=== PATIENT | female | born 1995 | race Caucasian/White ===

== ENCOUNTER 2016-10-21 14:20 | Emergency (ER) | payer MEDICAID ==
[2016-10-21 15:03] VITALS: BP 137/72
--- NOTE | 2016-10-21 15:54 | EDM.PDOC ---
ED HPI - General Chief Complaint: [employer] Problem Stated Complaint: 5 WEEKS PG SOME PAIN ON LEFT SIDE Time Seen by Provider: 10/21/16 15:48 Source: Reports: Patient, RN notes reviewed History Limitations: Reports: No limitations - History of Present Illness INITIAL COMMENTS - FREE TEXT/NARRATIVE: 21-year-old female presents to the emergency department a complaint of intermittent flank pain on the left side, she states she is newly estimates about 5 weeks she denies any vaginal bleeding any discharge no problems with urination the pain comes and goes a couple of times per day he rates the pain 5/10 she's been going on for the last 2 days - Related Data Allergies/ADRs: Allergies Allergy/AdvReac Type Severity Reaction Status Date / Time latex Allergy Cannot Verified 10/21/16 15:04 Remember Home Meds: Home Meds Vit W-Ca,Fe,FA(<1 mg) [P-D Nicolle Plus with Folic Acid] 1 tab PO DAILY 10/21/16 [History] Past Medical History [employer]ER History: Reports: Psychiatric History: Reports: ADHD, Depression - Past Surgical History HEENT Surgical History: Reports: Oral surgery Social & Family History - Tobacco Use Smoking Status *Q: Never Smoker Years of Tobacco use: 1 - Caffeine Use Caffeine Use: Reports: Soda - Alcohol Use Days Per Week of Alcohol Use: 0 - Recreational Drug Use Recreational Drug Use: No ED ROS GENERAL - Review of Systems Review Of Systems: See Below Constitutional: Reports: no symptoms Respiratory: Reports: no symptoms Cardiovascular: Reports: No symptoms GI/Abdominal: Reports: Abdominal pain. Denies: Nausea, Vomiting : Reports: no symptoms Musculoskeletal: Reports: no symptoms ED EXAM - Physical Exam Exam: See Below Exam Limited By: No limitations General Appearance: alert, WD/WN, no apparent distress Respiratory/Chest: no respiratory distress GI/Abdominal: normal bowel sounds, soft, non tender, no organomegaly, no distention, no abnormal bruit, no mass Course - Vital Signs Last Recorded V/S: Last Vital Signs Temp 96.4 F 10/21/16 15:06 Pulse 94 10/21/16 15:06 Resp 16 10/21/16 15:06 BP 137/72 10/21/16 15:06 Pulse Ox 100 10/21/16 15:06 - Orders/Labs/Meds Orders: Active Orders 24 hr Category Date Time Status OB Transvaginal [US] Stat Exams 10/21/16 16:58 Taken Labs: Laboratory Tests 10/21/16 10/21/16 10/21/16 Range/Units 16:02 16:02 16:02 WBC 10.5 (4.5-11.0) K/uL RBC 4.69 (3.30-5.50) M/uL Hgb 13.8 (12.0-15.0) g/dL Hct 40.1 (36.0-48.0) % MCV 86 (80-98) fL MCH 29 (27-31) pg MCHC 34 (32-36) % Plt Count 332 (150-400) K/uL Neut % (Auto) 72 H (36-66) % Lymph % (Auto) 20 L (24-44) % Stearns % (Auto) 7 H (2-6) % Eos % (Auto) 0 L (2-4) % Baso % (Auto) 1 (0-1) % Sodium 137 L (140-148) mmol/L Potassium 4.1 (3.6-5.2) mmol/L Chloride 103 (100-108) mmol/L Carbon Dioxide 29 (21-32) mmol/L Anion Gap 9.1 (5.0-14.0) mmol/L BUN 12 (7-18) mg/dL Creatinine 0.7 (0.6-1.0) mg/dL Est Cr Clr Drug Dosing 89.78 mL/min Estimated GFR (MDRD) > 60 (>60) Glucose 85 (74-106) mg/dL Calcium 8.6 (8.5-10.1) mg/dL HCG, Quant 6775 H (0-6) mIU/mL Urine Color Urine Appearance Urine pH (4.5-8.0) Ur Specific [place] (1.008-1.030) Urine Protein (NEGATIVE) mg/dL Urine Glucose (UA) (NEGATIVE) mg/dL Urine Ketones (NEGATIVE) mg/dL Urine Occult Blood (NEGATIVE) Urine Nitrite (NEGATIVE) Urine Bilirubin (NEGATIVE) Urine Urobilinogen (NORMAL) mg/dL Ur Leukocyte Esterase (NEGATIVE) Urine RBC (0-5) Urine WBC (0-5) Ur Epithelial Cells Amorphous Sediment Urine Bacteria Urine Mucus 10/21/16 Range/Units 16:10 WBC (4.5-11.0) K/uL RBC (3.30-5.50) M/uL Hgb (12.0-15.0) g/dL Hct (36.0-48.0) % MCV (80-98) fL MCH (27-31) pg MCHC (32-36) % Plt Count (150-400) K/uL Neut % (Auto) (36-66) % Lymph % (Auto) (24-44) % Stearns % (Auto) (2-6) % Eos % (Auto) (2-4) % Baso % (Auto) (0-1) % Sodium (140-148) mmol/L Potassium (3.6-5.2) mmol/L Chloride (100-108) mmol/L Carbon Dioxide (21-32) mmol/L Anion Gap (5.0-14.0) mmol/L BUN (7-18) mg/dL Creatinine (0.6-1.0) mg/dL Est Cr Clr Drug Dosing mL/min Estimated GFR (MDRD) (>60) Glucose (74-106) mg/dL Calcium (8.5-10.1) mg/dL HCG, Quant (0-6) mIU/mL Urine Color Yellow Urine Appearance Clear Urine pH 7.0 (4.5-8.0) Ur Specific [place] 1.015 (1.008-1.030) Urine Protein Negative (NEGATIVE) mg/dL Urine Glucose (UA) Normal (NEGATIVE) mg/dL Urine Ketones Negative (NEGATIVE) mg/dL Urine Occult Blood Negative (NEGATIVE) Urine Nitrite Negative (NEGATIVE) Urine Bilirubin Negative (NEGATIVE) Urine Urobilinogen Normal (NORMAL) mg/dL Ur Leukocyte Esterase Negative (NEGATIVE) Urine RBC 0-5 (0-5) Urine WBC 0-5 (0-5) Ur Epithelial Cells Rare Amorphous Sediment Not seen Urine Bacteria Not seen Urine Mucus Not seen Departure - Departure Time of Disposition: 18:29 Disposition: Home, Self-Care 01 Condition: good Clinical Impression: Left flank pain Forms: ED Department Discharge Additional Instructions: please start your vitamins, use Tylenol as needed for pain control, followup with your OB provider this week for further evaluation, call or return to the ED with worsening of symptoms - My Orders Last 24 Hours: My Active Orders 10/21/16 16:58 OB Transvaginal [US] Stat - Assessment/Plan Last 24 Hours: My Active Orders 10/21/16 16:58 OB Transvaginal [US] Stat Plan: Assessment Acuity = acute Site and laterality = left-sided flank pain complicated patient with new onset estimate 5 weeks Etiology = unclear etiology Manifestations = none Location of injury = home Lab values = CBC, CMP within normal limits beta hCG is 6775 urinalysis unremarkable transvaginal and does demonstrate intrauterine however no cardiac activity was observed Plan she is to followup with her [employer] within the next week for initial OB labs and further evaluation as needed, use Tylenol or pain control Patient was in agreement with the plan all questions were answered, they were instructed to return to the emergency department or call for worsening symptoms. This note was dictated using [employer] voice recognition software please call with any questions.
== END 2016-10-21 18:40 | disposition home or self-care (01) ==
LOC: JP.ED 14:20
DX: R10.9 Unspecified abdominal pain (principal); Z91.040 Latex allergy status; Z79.899 Other long term (current) drug therapy
CPT/HCPCS: 36415; 76817; 80048; 81001; 84702; 85025; 99284-25